=== PATIENT | male | born 1975 | race Caucasian/White ===

== ENCOUNTER 2020-02-01 06:20 | Emergency (ER) | payer BC, OTHER ==
[2020-02-01 06:37] LABS: Glucose,Whole Blood 94 mg/dL (75-99)
--- NOTE | 2020-02-01 06:46 | ED ---
General Adult HPI - General Chief complaint: Recheck/Abnormal Lab/Rx Stated complaint: Accidental Overdose Time Seen by Provider: 02/01/20 06:28 Source: patient, RN notes reviewed Mode of arrival: ambulatory Limitations: no limitations - History of Present Illness Initial comments: This a 44-year-old male presents emergency Department chief complaint of accidental insulin overdose. Patient states that he went to give himself his long-acting insulin but states he got his Humalog and gait 22 units and started 2 units. Patient states that he became very diaphoretic, nauseated. There is a pass out. Patient states that he didn't eat a large amount of sugar. Patient's last blood glucose was 12/14/2014 to 20 minutes prior arrival. Patient states she does feel better at this time. Denies chest pain, shortness breath, nausea vomiting - Related Data Home Medications Medication Instructions Recorded Confirmed Amoxicillin 500 mg PO Q8H 07/19/16 07/19/16 INSULIN LISPRO (humaLOG) [HumaLOG] See Protocol SQ AC-TID 07/19/16 07/19/16 Ibuprofen [Motrin] 800 mg PO TID PRN 07/19/16 07/19/16 Insulin Glargine,Hum.rec.anlog 18 units SQ DAILY 07/19/16 07/19/16 [Toujeo Solostar] Previous Rx's Medication Instructions Recorded Ibuprofen [Motrin] 600 mg PO Q6HR PRN #20 tab 07/19/16 Orphenadrine [Norflex] 100 mg PO Q12H PRN #12 tablet.er 07/19/16 Allergies Allergy/AdvReac Type Severity Reaction Status Date / Time No Known Allergies Allergy Verified 02/01/20 06:21 Review of Systems ROS Statement: Those systems with pertinent positive or pertinent negative responses have been documented in the HPI. ROS Other: All systems not noted in ROS Statement are negative. Past Medical History Past Medical History: Diabetes Mellitus History of Any Multi-Drug Resistant Organisms: None Reported Past Surgical History: Orthopedic Surgery Past Psychological History: No Psychological Hx Reported Smoking Status: Former smoker Past Alcohol Use History: None Reported Past Drug Use History: None Reported General Exam Limitations: no limitations General appearance: alert, in no apparent distress Head exam: Present: atraumatic, normocephalic, normal inspection Eye exam: Present: normal appearance, PERRL, EOMI. Absent: scleral icterus, conjunctival injection, periorbital swelling ENT exam: Present: normal exam, normal oropharynx, mucous membranes moist, TM's normal bilaterally Neck exam: Present: normal inspection, full ROM. Absent: tenderness, meningismus, lymphadenopathy Respiratory exam: Present: normal lung sounds bilaterally. Absent: respiratory distress, wheezes, rales, rhonchi, stridor Cardiovascular Exam: Present: regular rate, normal rhythm, normal heart sounds. Absent: systolic murmur, diastolic murmur, rubs, gallop, clicks Neurological exam: Present: alert, oriented X3, CN II-XII intact, reflexes normal. Absent: motor sensory deficit Skin exam: Present: warm, dry, intact, normal color. Absent: rash Course Vital Signs 02/01/20 02/01/20 02/01/20 06:21 08:25 09:00 Temperature 98.3 F 98.1 F Pulse Rate 98 81 77 Respiratory 18 18 16 Rate Blood Pressure 175/100 129/86 128/77 O2 Sat by Pulse 98 98 98 Oximetry Medical Decision Making - Medical Decision Making 44-year-old male presented for accidental insulin overdose. Patient has been observed for several hours, glucose is stabilized be discharged in stable condition. - Lab Data Lab Results 02/01/20 02/01/20 02/01/20 Range/Units 06:36 06:58 07:13 POC Glucose (mg/dL) 94 73 L 97 (75-99) mg/dL POC Glu Dry Talc Racker ID Myaa Harrison Blain Gaskill, Tammy 02/01/20 02/01/20 02/01/20 Range/Units 07:34 08:01 09:05 POC Glucose (mg/dL) 134 H 82 178 H (75-99) mg/dL POC Glu Dry Talc Racker ID Tonia Alas Molly Aguinaga, Molly 02/01/20 Range/Units 10:07 POC Glucose (mg/dL) 239 H (75-99) mg/dL POC Glu Dry Talc Racker ID Tonia Alas Disposition Clinical Impression: Accidental drug overdose, Hypoglycemia Disposition: HOME SELF-CARE Condition: Stable Instructions (If sedation given, give patient instructions): Hypoglycemia in a Person with Diabetes (ED) Additional Instructions: Please return to the Emergency Department if symptoms worsen or any other c oncerns. Is patient prescribed a controlled substance at d/c from ED?: No Referrals: None,Stated [Primary Care Provider] - 1-2 days Time of Disposition: 10:17
[2020-02-01 06:59] LABS: Glucose,Whole Blood 73 mg/dL (75-99)
[2020-02-01 07:25] LABS: Glucose,Whole Blood 97 mg/dL (75-99)
[2020-02-01 07:35] LABS: Glucose,Whole Blood 134 mg/dL (75-99)
[2020-02-01 08:02] LABS: Glucose,Whole Blood 82 mg/dL (75-99)
[2020-02-01] MEDS ORDERED: DEXTROSE 50% SYRINGE 50 ML IVP STA (08:14)
[2020-02-01 08:25] VITALS: TEMP 98.1
[2020-02-01 09:07] LABS: Glucose,Whole Blood 178 mg/dL (75-99)
[2020-02-01 09:34] VITALS: BP 128/77; PULSE 77; RESP 16
[2020-02-01 10:08] LABS: Glucose,Whole Blood 239 mg/dL (75-99)
== END 2020-02-01 10:19 | disposition home or self-care (01) ==
LOC: EC 06:20
DX: T38.3X1A Poisoning by insulin and oral hypoglycemic [antidiabetic] drugs, accidental (unintentional), initial encounter (principal); E11.649 Type 2 diabetes mellitus with hypoglycemia without coma; Z87.891 Personal history of nicotine dependence; Z79.4 Long term (current) use of insulin
CPT/HCPCS: 36415; 96374; 99284

== ENCOUNTER → 2021-02-16 | Outpatient (CLI) | payer BC ==
[2021-02-17 05:38] LABS: Basophils # (A) 0.01 X 10*3/uL (0.00-0.10); Basophils % (A) 0.2 %; Eosinophils # (A) 0.02 X 10*3/uL (0.04-0.35); Eosinophils % (A) 0.4 %; HCT 40.1 % (39.6-50.0); HGB 13.5 g/dL (13.0-17.0); Lymphocytes # (A) 1.23 X 10*3/uL (0.90-5.00); Lymphocytes % (A) 22.2 %; MCH 31.2 pg (27.0-32.0); MCHC 33.7 g/dL (32.0-37.0); MCV 92.6 fL (80.0-97.0); Mean Platelet Volume 10.6 fL (9.5-12.2); Monocytes % (A) 7.2 %; Neutrophils # (A) 3.85 X 10*3/uL (1.80-7.70); Neutrophils % (A) 69.6 %; Platelet Count 160 X 10*3/uL (140-440); RBC 4.33 X 10*6/uL (4.40-5.60); RDW 11.4 % (11.5-14.5); WBC 5.53 X 10*3/uL (4.50-10.00)
--- NOTE | 2021-02-17 12:58 | XR ---
EXAMINATION TYPE: XR chest 2V DATE OF EXAM: 02/16/2021 COMPARISON: NONE HISTORY: Covid pneumonia, cough and shortness of breath TECHNIQUE: Frontal and lateral views of the chest are obtained. FINDINGS: There is no pleural effusion or pneumothorax seen. Question some patchy basilar density. The cardiac silhouette size is within normal limits. The osseous structures are intact. IMPRESSION: Findings may represent vague airspace disease, correlate for pneumonia.
== END | disposition home or self-care (01) ==
LOC: LABWHC1 16:04
PROVIDERS: ATTEND Family Medicine
DX: U07.1 COVID-19 (principal); J12.82 Pneumonia due to coronavirus disease 2019
CPT/HCPCS: 85025; 71046; 36415; U0003; C9803; U0005

== ENCOUNTER → 2021-09-23 | Outpatient (CLI) | payer BC ==
[2021-09-23 20:13] LABS: Albumin 4.4 g/dL (3.8-4.9); Albumin/Globulin Ratio 1.95 (1.60-3.17); Anion Gap 12.3 mmol/L (4.00-12.00); BUN/Creat Ratio 12.89 Ratio (12.00-20.00); Blood Urea Nitrogen 10.7 mg/dL (9.0-27.0); Calcium 9.5 mg/dL (8.7-10.3); Chol/HDL Ratio 2.67 Ratio; Globulin 2.3 g/dL (1.6-3.3); HDL Cholesterol 59.2 mg/dL (40.00-60.00); Potassium 4.5 mmol/L (3.5-5.5); Total Protein 6.7 g/dL (6.2-8.2)
[2021-09-23 20:25] LABS: Triglycerides 37.4 mg/dL (0.00-149.00); VLDL Calculation 7.48 mg/dL (5.00-40.00)
[2021-09-23 21:50] LABS: Microalbumin Creatinine Ratio <30 mg/g Creat (0-30)
== END | disposition home or self-care (01) ==
LOC: LABWHC1 09:15
PROVIDERS: ATTEND Internal Medicine Endocrinology, Diabetes & Metabolism
DX: E10.65 Type 1 diabetes mellitus with hyperglycemia (principal)
CPT/HCPCS: 36415; 80053; 80061; 82043; 82570; 83036; 84443

== ENCOUNTER → 2022-07-14 | Outpatient (CLI) | payer BC ==
[2022-07-14 16:49] LABS: African American GFR (CKD) 122.2 (60.0-200.0); Albumin 4.4 g/dL (3.8-4.9); Albumin/Globulin Ratio 1.82 (1.60-3.17); Anion Gap 10.1 mmol/L (10.00-18.00); BUN/Creat Ratio 12.06 Ratio (12.00-20.00); Blood Urea Nitrogen 10.2 mg/dL (9.0-27.0); Calcium 9.6 mg/dL (8.7-10.3); Carbon Dioxide 26.1 mmol/L (20.0-27.5); Globulin 2.4 g/dL (1.6-3.3); HDL Cholesterol 59.3 mg/dL (40.00-60.00); Non-African American GFR(CKD) 105.4 (60.0-200.0); Potassium 4.8 mmol/L (3.5-5.5); Total Bilirubin 0.8 mg/dL (0.30-1.20); Total Protein 6.7 g/dL (6.2-8.2); Triglycerides 45.5 mg/dL (0.00-149.00)
[2022-07-14 17:07] LABS: Chol/HDL Ratio 2.66 Ratio; LDL Cholesterol,Direct Reflex 89.7 mg/dL (0.00-129.00)
[2022-07-14 18:27] LABS: Microalbumin Creatinine Ratio <30 mg/g Creat (0-30); Urine Creatinine 94.7 mg/dL (39.0-259.0)
== END | disposition home or self-care (01) ==
LOC: LABWHC1 08:56
PROVIDERS: ATTEND Internal Medicine Endocrinology, Diabetes & Metabolism
DX: E10.65 Type 1 diabetes mellitus with hyperglycemia (principal)
CPT/HCPCS: 36415; 80053; 80061; 82043; 82570; 83036; 83721; 84443

== ENCOUNTER 2022-07-24 20:48 | Emergency (ER) | payer BC ==
[2022-07-24 20:57] VITALS: BP 145/67; PULSE 99; RESP 16; TEMP 98
[2022-07-24 21:27] LABS: Basophils # (A) 0.1 k/uL (0-0.2); Basophils % (A) 1 %; Eosinophils # (A) 0.1 k/uL (0-0.7); Eosinophils % (A) 1 %; HCT 45.2 % (39.0-53.0); Lymphocytes # (A) 2.1 k/uL (1.0-4.8); Lymphocytes % (A) 27 %; MCHC 33.1 g/dL (31.0-37.0); MCV 93.4 fL (80.0-100.0); Mean Platelet Volume 7.1; Monocytes # (A) 0.3 k/uL (0-1.0); Monocytes % (A) 4 %; Neutrophils # (A) 4.9 k/uL (1.3-7.7); Neutrophils % (A) 64 %; Platelet Count 283 k/uL (150-450); RBC 4.83 m/uL (4.30-5.90); WBC 7.6 k/uL (3.8-10.6)
[2022-07-24 21:35] LABS: ALT 26 U/L (4-49); AST 25 U/L (17-59); African American GFR (CKD) >90 (>60 ml/min/1.73 sqM); Albumin 4.4 g/dL (3.5-5.0); Alkaline Phosphatase 86 U/L (38-126); Anion Gap 15 mmol/L; Blood Urea Nitrogen 12 mg/dL (9-20); Calcium 9.9 mg/dL (8.4-10.2); Carbon Dioxide 20 mmol/L (22-30); Chloride 104 mmol/L (98-107); Glucose 195 mg/dL (74-99); Non-African American GFR(CKD) >90 (>60 ml/min/1.73 sqM); Potassium 3.7 mmol/L (3.5-5.1); Sodium 139 mmol/L (137-145); Total Bilirubin 0.9 mg/dL (0.2-1.3)
[2022-07-24 21:41] LABS: Partial Thromboplastin Time 24.6 sec (22.0-30.0)
--- NOTE | 2022-07-24 22:55 | ED ---
Chest Pain HPI - General Chief Complaint: Chest Pain Stated Complaint: chest pain/tightness, neck,shoulder pain Time Seen by Provider: 07/24/22 22:44 Source: patient, RN notes reviewed, old records reviewed Mode of arrival: wheelchair Limitations: no limitations - History of Present Illness Initial Comments: This is a 47-year-old male to the emergency department for evaluation patient [place] for evaluation of significant heart palpitations patient states he was at work and not feeling well due to not feeling well he left work early he continued not feeling well throughout the night them began to have some significant chest palpitations like his heart was beating significantly hardness chest this of course may have significantly worried. There was really no nausea no vomiting no other complaints, no travel history no sick contacts no recent medical history or issues. Patient has no high blood pressure no high cholesterol no diabetes. Patient currently is without complaint no chest pain no shortness of breath no sweating. He feels well. is at bedside who believes is having anxiety and a recent implantation of persistent blood sugar monitor MD Complaint: chest pain ([place] heart beating in his chest significant) -: hour(s) Onset: during rest Pain Location: left chest Pain Radiation: none, RUE, LUE Severity: mild Severity scale (1-10): 2 Quality: other (Palpitations) Consistency: intermittent, now resolved Improves With: nothing Worsens With: nothing Anginal Symptoms: sense of impending doom Other Symptoms: palpitations Treatments Prior to Arrival: none - Related Data Home Medications Medication Instructions Recorded Confirmed Amoxicillin 500 mg PO Q8H 07/19/16 07/19/16 INSULIN LISPRO (humaLOG) [HumaLOG] See Protocol SQ AC-TID 07/19/16 07/19/16 Ibuprofen [Motrin] 800 mg PO TID PRN 07/19/16 07/19/16 Insulin Glargine,Hum.rec.anlog 18 units SQ DAILY 07/19/16 07/19/16 [Jessica Maldonado] Previous Rx's Medication Instructions Recorded Ibuprofen [Motrin] 600 mg PO Q6HR PRN #20 tab 07/19/16 Orphenadrine [Norflex] 100 mg PO Q12H PRN #12 tablet.er 07/19/16 Allergies Allergy/AdvReac Type Severity Reaction Status Date / Time No Known Allergies Allergy Verified 07/24/22 20:55 Review of Systems ROS Statement: Those systems with pertinent positive or pertinent negative responses have been documented in the HPI. ROS Other: All systems not noted in ROS Statement are negative. EKG Findings - EKG Comments: EKG Findings:: EKG is sinus rhythm 90 FL 154 QRS 114 QTc 401 Past Medical History Past Medical History: Diabetes Mellitus History of Any Multi-Drug Resistant Organisms: None Reported Past Surgical History: Orthopedic Surgery Past Psychological History: No Psychological Hx Reported Smoking Status: Never smoker Past Alcohol Use History: None Reported Past Drug Use History: Marijuana General Exam Limitations: no limitations General appearance: alert, in no apparent distress, anxious Head exam: Present: atraumatic, normocephalic, normal inspection Eye exam: Present: normal appearance, PERRL, EOMI. Absent: scleral icterus, conjunctival injection, periorbital swelling ENT exam: Present: normal exam, mucous membranes moist Neck exam: Present: normal inspection. Absent: tenderness, meningismus, lymphadenopathy Respiratory exam: Present: normal lung sounds bilaterally. Absent: respiratory distress, wheezes, rales, rhonchi, stridor Cardiovascular Exam: Present: regular rate, normal rhythm, normal heart sounds. Absent: systolic murmur, diastolic murmur, rubs, gallop, clicks GI/Abdominal exam: Present: soft, normal bowel sounds. Absent: distended, tenderness, guarding, rebound, rigid Extremities exam: Present: normal inspection, full ROM, normal capillary refill. Absent: tenderness, pedal edema, joint swelling, calf tenderness Back exam: Present: normal inspection Neurological exam: Present: alert, oriented X3, CN II-XII intact Psychiatric exam: Present: normal affect, normal mood Skin exam: Present: warm, dry, intact, normal color. Absent: rash Course Vital Signs 07/24/22 20:55 Temperature 98 F Pulse Rate 99 Respiratory 16 Rate Blood Pressure 145/67 O2 Sat by Pulse 98 Oximetry - Reevaluation(s) Reevaluation #1: 07/24/22 23:21 Medical record is reviewed Reevaluation #2: 07/24/22 23:22 Patient is asymptomatic and recheck and reevaluation Reevaluation #3: 07/24/22 23:22 Patient informed results and questions answered Reevaluation #4: 07/24/22 23:22 Patient offered observation for stress testing cardiology evaluation refusing and prefers discharge Chest Pain MDM - MDM 47 male nonspecific chest pain. Patient feels well currently. At this point patient can be discharged home Disposition Clinical Impression: Chest pain Disposition: HOME SELF-CARE Condition: Good Instructions (If sedation given, give patient instructions): Chest Pain (ED) Is patient prescribed a controlled substance at d/c from ED?: No Referrals: None,Stated [Primary Care Provider] - 1-2 days Time of Disposition: 23:20
== END 2022-07-24 23:23 | disposition home or self-care (01) ==
LOC: EC 20:48
DX: R07.89 Other chest pain (principal); E11.9 Type 2 diabetes mellitus without complications; Z79.4 Long term (current) use of insulin
CPT/HCPCS: 36415; 80053; 84484; 85025; 85610; 85730; 93005; 99284

== ENCOUNTER 2023-03-01 22:39 | Emergency (ER) | payer BC ==
[2023-03-01 22:47] VITALS: BP 178/84; PULSE 75; RESP 18
--- NOTE | 2023-03-01 23:04 | ED ---
General Adult HPI - General Chief complaint: Nausea/Vomiting/Diarrhea Stated complaint: HANDS NUMB Time Seen by Provider: 03/01/23 22:48 Source: patient Mode of arrival: ambulatory Limitations: no limitations - History of Present Illness Initial comments: Patient is a 47-year-old male presenting with chief complaint of transient episode of numbness to the bilateral hands. Patient states that at home he had sudden onset nausea, head pressure, and numbness in the hands which lasted for a few seconds. Symptoms have now completely resolved. He denies any chest pain, difficulty breathing, nausea, vomiting, palpitations, weakness, abdominal pain, headache, vision or hearing changes, dizziness, syncope, fever, chills. - Related Data Home Medications Medication Instructions Recorded Confirmed Amoxicillin 500 mg PO Q8H 07/19/16 07/19/16 INSULIN LISPRO (humaLOG) [HumaLOG] See Protocol SQ AC-TID 07/19/16 07/19/16 Ibuprofen [Motrin] 800 mg PO TID PRN 07/19/16 07/19/16 Insulin Glargine,Hum.rec.anlog 18 units SQ DAILY 07/19/16 07/19/16 [Toujeo Solostar] Previous Rx's Medication Instructions Recorded Ibuprofen [Motrin] 600 mg PO Q6HR PRN #20 tab 07/19/16 Orphenadrine [Norflex] 100 mg PO Q12H PRN #12 tablet.er 07/19/16 Allergies Allergy/AdvReac Type Severity Reaction Status Date / Time No Known Allergies Allergy Verified 07/24/22 20:55 Review of Systems ROS Statement: Those systems with pertinent positive or pertinent negative responses have been documented in the HPI. ROS Other: All systems not noted in ROS Statement are negative. Past Medical History Past Medical History: Diabetes Mellitus History of Any Multi-Drug Resistant Organisms: None Reported Past Surgical History: Orthopedic Surgery Past Psychological History: No Psychological Hx Reported Smoking Status: Never smoker Past Alcohol Use History: None Reported Past Drug Use History: Marijuana General Exam Limitations: no limitations General appearance: alert, in no apparent distress Head exam: Present: atraumatic, normocephalic, normal inspection Eye exam: Present: normal appearance, PERRL, EOMI. Absent: scleral icterus, conjunctival injection, periorbital swelling Neck exam: Present: normal inspection, full ROM Respiratory exam: Present: normal lung sounds bilaterally. Absent: respiratory distress, wheezes, rales, rhonchi, stridor Cardiovascular Exam: Present: regular rate, normal rhythm, normal heart sounds. Absent: systolic murmur, diastolic murmur, rubs, gallop, clicks Neurological exam: Present: alert, oriented X3, CN II-XII intact Expanded Patient oriented to: Present: person, place, time Speech: Present: fluid speech Cranial nerves: EOM's Intact: Normal, Facial Sensation: Normal Cerebellar function: Finger to Nose: Normal Sensory exam: Upper Extremity Light Touch: Normal, Lower Extremity Light Touch: Normal Motor strength exam: RUE: 5, LUE: 5, RLE: 5, LLE: 5 Eye Response: (4) open spontaneously Motor Response: (6) obeys commands Verbal Response: (5) oriented Denny Total: 15 Psychiatric exam: Present: normal affect, normal mood Skin exam: Present: warm, dry, intact, normal color. Absent: rash Course Vital Signs 03/01/23 22:43 Pulse Rate 75 Respiratory 18 Rate Blood Pressure 178/84 O2 Sat by Pulse 98 Oximetry Medical Decision Making - Medical Decision Making Was pt. sent in by a medical professional or institution (, PA, HAY RAKE OPERATOR, urgent care, hospital, or senior living...) When possible be specific @ -No Did you speak to anyone other than the patient for history (EMS, parent, family, police, friend...)? What history was obtained from this source @ -No Did you review nursing and triage notes (agree or disagree)? Why? @ -I reviewed and agree with nursing and triage notes Were old charts reviewed (outside hosp., previous admission, EMS record, old EKG, old radiological studies, urgent care reports/EKG's, senior living records)? Report findings @ -No old charts were reviewed Differential Diagnosis (chest pain, altered mental status, abdominal pain women, abdominal pain men, vaginal bleeding, weakness, fever, dyspnea, syncope, headache, dizziness, GI bleed, back pain, seizure, CVA, palpatations, mental health, musculoskeletal)? @ -Differential includes anxiety, TIA, dysrhythmia, this is not an all inclusive list EKG interpreted by me (3pts min.). @ -As above X-rays interpreted by me (1pt min.). @ -None done CT interpreted by me (1pt min.). @ -None done U/S interpreted by me (1pt. min.). @ -None done What testing was considered but not performed or refused? (CT, X-rays, U/S, labs)? Why? @ -None What meds were considered but not given or refused? Why? @ -None Did you discuss the management of the patient with other professionals (professionals i.e. Dr., PA, HAY RAKE OPERATOR, lab, RT, psych nurse, social problems specialist, paster hat lining, teacher, air support control officer, dependency case manager)? Give summary @ -No Was smoking cessation discussed for >3mins.? @ -No Was critical care preformed (if so, how long)? @ -No Were there social determinants of health that impacted care today? How? (Home lessness, low income, unemployed, alcoholism, drug addiction, transportation, low edu. Level, literacy, decrease access to med. care, correction, rehab)? @ -No Was there de-escalation of care discussed even if they declined (Discuss DNR or withdrawal of care, Hospice)? DNR status @ -No What co-morbidities impacted this encounter? (DM, HTN, Smoking, COPD, CAD, Cancer, CVA, ARF, Chemo, Hep., AIDS, mental health diagnosis, sleep apnea, morbid obesity)? @ -None Was patient admitted / discharged? Hospital course, mention meds given and route, prescriptions, significant lab abnormalities, going to OR and other pertinent info. @ -Patient is a 47-year-old male presenting for evaluation after brief episode of nausea, head pressure, numbness in the bilateral hands. Patient states this episode started very quickly and only lasted a few seconds. Symptoms have now completely resolved. He is asymptomatic at time of presentation. On physical exam heart and lungs are clear to auscultation, no focal neurological deficits. Patient is nontoxic appearing. I discussed that since the patient is not having any symptoms at this time I do not believe there are any laboratory studies or imaging studies that would be of benefit. I did advise that the patient inquire about a Holter monitor with his PCP. Patient is agreeable. Follow-up with PCP. Report back to ER with any new or worsening symptoms. Discussed return parameters and answered all questions. Patient conveyed verbal understanding and agreed to the plan. I discussed this case in detail with my attending Dr. Headley Undiagnosed new problem with uncertain prognosis? @ -No Drug Therapy requiring intensive monitoring for toxicity (Heparin, Nitro, Insulin, Cardizem)? @ -No Were any procedures done? @ -No Diagnosis/symptom? @ -Paresthesias Acute, or Chronic, or Acute on Chronic? @ -Acute Uncomplicated (without systemic symptoms) or Complicated (systemic symptoms)? @ -Uncomplicated Side effects of treatment? @ -No Exacerbation, Progression, or Severe Exacerbation? @ -No Poses a threat to life or bodily function? How? (Chest pain, [place], [place], pneumonia, PE, COPD, DKA, ARF, appy, cholecystitis, CVA, Diverticulitis, Homicidal, Suicidal, threat to staff... and all critical care pts) @ -No Disposition Clinical Impression: Paresthesia Disposition: HOME SELF-CARE Condition: Good Instructions (If sedation given, give patient instructions): Paresthesia (ED) Additional Instructions: Follow-up with PCP. Report back to ER with any new or worsening symptoms. Is patient prescribed a controlled substance at d/c from ED?: No Referrals: Ryan Walker NPC [Primary Care Provider] - 1-2 days Time of Disposition: 23:04
== END 2023-03-01 23:20 | disposition home or self-care (01) ==
LOC: EC 22:39
DX: R20.2 Paresthesia of skin (principal); E11.9 Type 2 diabetes mellitus without complications; F12.90 Cannabis use, unspecified, uncomplicated; Z79.4 Long term (current) use of insulin
CPT/HCPCS: 99283

== ENCOUNTER → 2023-09-28 | Outpatient (CLI) | payer BC ==
[2023-09-28 10:12] LABS: ALT 34 U/L (4-49); AST 26 U/L (17-59); African American GFR (CKD) >90 (>60 ml/min/1.73 sqM); Albumin 4.2 g/dL (3.5-5.0); Albumin/Globulin Ratio 1.5; Alkaline Phosphatase 102 U/L (38-126); Anion Gap 8 mmol/L; Blood Urea Nitrogen 16 mg/dL (9-20); Calcium 9.3 mg/dL (8.4-10.2); Carbon Dioxide 27 mmol/L (22-30); Chloride 105 mmol/L (98-107); Globulin 2.8 g/dL; Glucose 235 mg/dL (74-99); Non-African American GFR(CKD) >90 (>60 ml/min/1.73 sqM); Potassium 4.7 mmol/L (3.5-5.1); Sodium 140 mmol/L (137-145); Total Bilirubin 0.7 mg/dL (0.2-1.3)
[2023-09-28 14:15] LABS: Microalbumin Creatinine Ratio <10 mg/g Cr (0-30)
[2023-09-29 13:34] LABS: Chol/HDL Ratio 3.01 Ratio; LDL Cholesterol,Calculated 95.2 mg/dL (0.0-131.0); VLDL Calculation 7.74 mg/dL (5.00-40.00)
== END | disposition home or self-care (01) ==
LOC: LABWHC1 08:08
PROVIDERS: ATTEND Internal Medicine Endocrinology, Diabetes & Metabolism
DX: E10.65 Type 1 diabetes mellitus with hyperglycemia (principal)
CPT/HCPCS: 36415; 80053; 80061; 82043; 82570; 83036; 84443

== ENCOUNTER 2023-10-21 18:50 | Emergency (ER) | payer BC ==
--- NOTE | 2023-10-21 19:02 | ED ---
General Adult HPI - General Source: patient, RN notes reviewed <Mai Roberts - Last Filed: 10/21/23 19:01> - General Source: patient, RN notes reviewed Mode of arrival: ambulatory Limitations: no limitations <Sameera Myers - Last Filed: 10/22/23 20:40> - General Chief complaint: Chest Pain Stated complaint: Chest pain Time Seen by Provider: 10/21/23 19:01 - History of Present Illness Initial comments: 48-year-old male presents emergency department for chief complaint of abnormal EKG. Patient states that he was evaluated today for some chest discomfort. He stated that time he took an EKG and states that it was abnormal. They sent him to the emergency department for further evaluation. He denies any shortness of breath. He is type 1 Diabetic. (Mai Roberts) This is a 48-year-old male who presents to the emergency department for chest pain. States that early this morning he started to develop sharp chest pain. Denies any shortness of breath or radiation of pain. He initially went to the urgent care in [place]. States that they did an EKG and were concerned that it was abnormal, and they advised him to come to the emergency department for evaluation. Pain is mild at this time. Denies any personal or family history of cardiac problems. (Sameera Myers) - Related Data Home Medications Medication Instructions Recorded Confirmed Amoxicillin 500 mg PO Q8H 07/19/16 07/19/16 INSULIN LISPRO (humaLOG) [HumaLOG] See Protocol SQ AC-TID 07/19/16 07/19/16 Ibuprofen [Motrin] 800 mg PO TID PRN 07/19/16 07/19/16 Insulin Glargine,Hum.rec.anlog 18 units SQ DAILY 07/19/16 07/19/16 [Toujeo Solostar] Previous Rx's Medication Instructions Recorded Ibuprofen [Motrin] 600 mg PO Q6HR PRN #20 tab 07/19/16 Orphenadrine [Norflex] 100 mg PO Q12H PRN #12 tablet.er 07/19/16 Allergies Allergy/AdvReac Type Severity Reaction Status Date / Time No Known Allergies Allergy Verified 07/24/22 20:55 Review of Systems ROS Other: All systems not noted in ROS Statement are negative. <Mai Roberts - Last Filed: 10/21/23 19:01> ROS Other: All systems not noted in ROS Statement are negative. <Sameera Myers - Last Filed: 10/22/23 20:40> ROS Statement: Those systems with pertinent positive or pertinent negative responses have been documented in the HPI. Past Medical History Past Medical History: Diabetes Mellitus History of Any Multi-Drug Resistant Organisms: None Reported Past Surgical History: Orthopedic Surgery Past Psychological History: No Psychological Hx Reported Smoking Status: Never smoker Past Alcohol Use History: None Reported Past Drug Use History: Marijuana <Mai Roberts - Last Filed: 10/21/23 19:01> General Exam <Mai Roberts - Last Filed: 10/21/23 19:01> Limitations: no limitations General appearance: alert, in no apparent distress Head exam: Present: atraumatic, normocephalic, normal inspection Respiratory exam: Present: normal lung sounds bilaterally. Absent: respiratory distress, wheezes, rales, rhonchi, stridor Cardiovascular Exam: Present: regular rate, normal rhythm, normal heart sounds. Absent: systolic murmur, diastolic murmur, rubs, gallop, clicks Neurological exam: Present: alert, oriented X3, CN II-XII intact Psychiatric exam: Present: normal affect, normal mood Skin exam: Present: warm, dry, intact, normal color. Absent: rash <Sameera Myers - Last Filed: 10/22/23 20:40> - General Exam Comments Initial Comments: Visual Physical Exam Vital signs reviewed General: Well-appearing, nontoxic, no acute distress. Head: Normocephalic, atraumatic Eyes: PERRLA, EOMI ENT: Airway patent Chest: Nonlabored breathing Skin: No visual rash, normal skin tone Neuro: Alert and oriented 3 Musculoskeletal: No gross abnormalities (Mai Roberts) Course Vital Signs 10/21/23 10/22/23 18:59 02:09 Temperature 98.2 F 97.6 F Pulse Rate 85 61 Respiratory 16 18 Rate Blood Pressure 160/88 146/80 O2 Sat by Pulse 98 Oximetry Medical Decision Making <Mai Roberts - Last Filed: 10/21/23 19:01> - Lab Data Result diagrams: 10/21/23 19:29 10/21/23 19:29 - Radiology Data Radiology results: report reviewed, image reviewed <Sameera Myers - Last Filed: 10/22/23 20:40> - Medical Decision Making I preformed the quick note portion of this chart. signed by Mai Roberts PA-C (Mai Roberts) This is a 48-year-old male who presents to the emergency department for chest pain. Was pt. sent in by a medical professional or institution? @ -No Did you speak to anyone other than the patient for history? @ -No Did you review nursing and triage notes? @ -Yes, and I agree, it is accurate with regards to the patient's symptoms. Were old charts reviewed? @ -No Differential Diagnosis? @ -Differential Chest Pain: Stable Angina, Unstable Angina, STEMI, NSTEMI Aortic Dissection, Pneumothorax, Musculoskeletal, Esophageal Spasm GERD, Cholecystitis, Pancreatitis, Zoster, this is not meant to be an all-inclusive list. EKG interpreted by me (3pts min.)? @ -EKG interpreted by me demonstrating the following: Sinus rhythm. Ventricular rate 75 bpm, AK interval 170 ms, QRS duration 117 ms, QTC 379 ms. X-rays interpreted by me (1pt min.)? @ -Chest x-ray obtained, my interpretation identifies no localized consolidations or infiltrates. CT interpreted by me (1pt min.)? @ -Not obtained U/S interpreted by me (1pt. min.)? @ -Not obtained What testing was considered but not performed? (CT, X-rays, U/S, labs)? Why? @ -None What meds were considered but not given? Why? @ -None Did you discuss the management of the patient with other professionals? @ -No Did you reconcile home meds? @ -No Was smoking cessation discussed for >3mins.? @ -No Was critical care preformed (if so, how long)? @ -No Were there social determinants of health that impacted care today? How? (Homelessness, low income, unemployed, alcoholism, drug addiction, transportation, low edu. Level, literacy, decrease access to med. care, nursing home, rehab)? @ -No Was there de-escalation of care discussed even if they declined? (Discuss DNR or withdrawal of care, Hospice)? @ -No What co-morbidities impacted this encounter? (DM, HTN, Smoking, COPD, CAD, Cancer, CVA, Hep., AIDS, mental health diagnosis, sleep apnea, morbid obesity)? @ -DM Was patient admitted / discharged? @ -Discharged. Lab work obtained and found to be fairly unremarkable aside from a low blood sugar of 50. Patient was asymptomatic in terms of his blood sugar. He had also not eaten before the blood work was drawn and was eating while in the emergency department afterwards. Chest x-ray negative for any acute process. Patient's heart score is 2. Pain continued to be mild in the emergency department and he felt stable for discharge home. Advised ibuprofen and Tylenol as needed for pain relief and close follow-up with his primary care provider for reevaluation. Undiagnosed new problem with uncertain prognosis? @ -None Drug Therapy requiring intensive monitoring for toxicity (Heparin, Nitro, Insulin, Cardizem)? @ -None Were any procedures done? @ -None Diagnosis/symptom? @ -Chest pain Acute, or Chronic, or Acute on Chronic? @ -Acute Uncomplicated (without systemic symptoms) or Complicated (systemic symptoms)? @ -Uncomplicated Side effects of treatment? @ -None Exacerbation, Progression, or Severe Exacerbation] @ -Not applicable Poses a threat to life or bodily function? @ -No Return precautions reviewed in depth, the patient is instructed to return to the emergency department with any new, worsening, or concerning symptoms. Patient verbalized understanding. This case was discussed in detail with the attending ED physician, Dr. Roy. Presentation, findings, and treatment plan discussed in detail as well. (Sameera Myers) - Lab Data Lab Results 10/21/23 10/21/23 10/21/23 Range/Units 19:29 19:29 19:29 WBC 6.8 (3.8-10.6) k/uL RBC 4.75 (4.30-5.90) m/uL Hgb 15.3 (13.0-17.5) gm/dL Hct 45.3 (39.0-53.0) % MCV 95.5 (80.0-100.0) fL MCH 32.3 (25.0-35.0) pg MCHC 33.8 (31.0-37.0) g/dL RDW 12.0 (11.5-15.5) % Plt Count 277 (150-450) k/uL MPV 7.1 Neutrophils % 51 % Lymphocytes % 40 % Monocytes % 4 % Eosinophils % 2 % Basophils % 1 % Neutrophils # 3.5 (1.3-7.7) k/uL Lymphocytes # 2.7 (1.0-4.8) k/uL Monocytes # 0.3 (0-1.0) k/uL Eosinophils # 0.1 (0-0.7) k/uL Basophils # 0.1 (0-0.2) k/uL PT 11.2 (10.0-12.5) sec INR 1.0 (<1.2) APTT 26.3 (22.0-30.0) sec Sodium 141 (137-145) mmol/L Potassium 3.8 (3.5-5.1) mmol/L Chloride 103 (98-107) mmol/L Carbon Dioxide 27 (22-30) mmol/L Anion Gap 11 mmol/L BUN 16 (9-20) mg/dL Creatinine 0.68 (0.66-1.25) mg/dL Est GFR (CKD-EPI)AfAm >90 (>60 ml/min/1.73 sqM) Est GFR (CKD-EPI)NonAf >90 (>60 ml/min/1.73 sqM) Glucose 50 L (74-99) mg/dL Calcium 9.7 (8.4-10.2) mg/dL Magnesium 2.1 (1.6-2.3) mg/dL Total Bilirubin 0.6 (0.2-1.3) mg/dL AST 27 (17-59) U/L ALT 41 (4-49) U/L Alkaline Phosphatase 84 (38-126) U/L Troponin I (0.000-0.034) ng/mL Total Protein 7.6 (6.3-8.2) g/dL Albumin 4.6 (3.5-5.0) g/dL 10/21/23 Range/Units 19:29 WBC (3.8-10.6) k/uL RBC (4.30-5.90) m/uL Hgb (13.0-17.5) gm/dL Hct (39.0-53.0) % MCV (80.0-100.0) fL MCH (25.0-35.0) pg MCHC (31.0-37.0) g/dL RDW (11.5-15.5) % Plt Count (150-450) k/uL MPV Neutrophils % % Lymphocytes % % Monocytes % % Eosinophils % % Basophils % % Neutrophils # (1.3-7.7) k/uL Lymphocytes # (1.0-4.8) k/uL Monocytes # (0-1.0) k/uL Eosinophils # (0-0.7) k/uL Basophils # (0-0.2) k/uL PT (10.0-12.5) sec INR (<1.2) APTT (22.0-30.0) sec Sodium (137-145) mmol/L Potassium (3.5-5.1) mmol/L Chloride (98-107) mmol/L Carbon Dioxide (22-30) mmol/L Anion Gap mmol/L BUN (9-20) mg/dL Creatinine (0.66-1.25) mg/dL Est GFR (CKD-EPI)AfAm (>60 ml/min/1.73 sqM) Est GFR (CKD-EPI)NonAf (>60 ml/min/1.73 sqM) Glucose (74-99) mg/dL Calcium (8.4-10.2) mg/dL Magnesium (1.6-2.3) mg/dL Total Bilirubin (0.2-1.3) mg/dL AST (17-59) U/L ALT (4-49) U/L Alkaline Phosphatase (38-126) U/L Troponin I <0.012 (0.000-0.034) ng/mL Total Protein (6.3-8.2) g/dL Albumin (3.5-5.0) g/dL Disposition <Mai Roberts - Last Filed: 10/21/23 19:01> Is patient prescribed a controlled substance at d/c from ED?: No <Sameera Myers - Last Filed: 10/22/23 20:40> Clinical Impression: Chest pain Disposition: HOME SELF-CARE Instructions (If sedation given, give patient instructions): Chest Pain (ED) Additional Instructions: Return to the emergency department with any new, worsening, or concerning symptoms. Follow up with your primary care provider in 1-2 days. Referrals: None,Stated [REFERRING] - 1-2 days
[2023-10-21 19:39] LABS: Basophils # (A) 0.1 k/uL (0-0.2); Basophils % (A) 1 %; Eosinophils # (A) 0.1 k/uL (0-0.7); Eosinophils % (A) 2 %; HCT 45.3 % (39.0-53.0); HGB 15.3 gm/dL (13.0-17.5); Lymphocytes # (A) 2.7 k/uL (1.0-4.8); Lymphocytes % (A) 40 %; MCH 32.3 pg (25.0-35.0); MCHC 33.8 g/dL (31.0-37.0); MCV 95.5 fL (80.0-100.0); Mean Platelet Volume 7.1; Monocytes # (A) 0.3 k/uL (0-1.0); Monocytes % (A) 4 %; Neutrophils # (A) 3.5 k/uL (1.3-7.7); Neutrophils % (A) 51 %; Platelet Count 277 k/uL (150-450); RBC 4.75 m/uL (4.30-5.90); WBC 6.8 k/uL (3.8-10.6)
[2023-10-21 19:52] LABS: Partial Thromboplastin Time 26.3 sec (22.0-30.0); Prothrombin Time 11.2 sec (10.0-12.5)
[2023-10-21 20:12] LABS: ALT 41 U/L (4-49); AST 27 U/L (17-59); African American GFR (CKD) >90 (>60 ml/min/1.73 sqM); Albumin 4.6 g/dL (3.5-5.0); Alkaline Phosphatase 84 U/L (38-126); Anion Gap 11 mmol/L; Blood Urea Nitrogen 16 mg/dL (9-20); Calcium 9.7 mg/dL (8.4-10.2); Carbon Dioxide 27 mmol/L (22-30); Chloride 103 mmol/L (98-107); Glucose 50 mg/dL (74-99); Magnesium 2.1 mg/dL (1.6-2.3); Non-African American GFR(CKD) >90 (>60 ml/min/1.73 sqM); Potassium 3.8 mmol/L (3.5-5.1); Sodium 141 mmol/L (137-145); Total Bilirubin 0.6 mg/dL (0.2-1.3); Total Protein 7.6 g/dL (6.3-8.2)
--- NOTE | 2023-10-21 20:37 | XR ---
EXAMINATION TYPE: XR chest 2V DATE OF EXAM: 10/21/2023 7:47 PM CLINICAL INDICATION:Male, 48 years old with history of Chest Pain; [facility] COMPARISON: Chest radiographs from TECHNIQUE: XR chest 2V Frontal and lateral views of the chest. FINDINGS: Lungs/Pleura: There is no evidence of pleural effusion, focal consolidation, or pneumothorax. Pulmonary vascularity: Unremarkable. Heart/mediastinum: Cardiomediastinal silhouette is unremarkable. Musculoskeletal: No acute osseous pathology. IMPRESSION: No acute cardiopulmonary disease/process.
[2023-10-22 02:27] VITALS: BP 146/80; PULSE 61; RESP 18; TEMP 97.6
== END 2023-10-22 02:18 | disposition home or self-care (01) ==
LOC: EC 18:50
DX: I45.10 Unspecified right bundle-branch block (principal); I44.4 Left anterior fascicular block; E10.9 Type 1 diabetes mellitus without complications; F12.90 Cannabis use, unspecified, uncomplicated; Z79.4 Long term (current) use of insulin
CPT/HCPCS: 36415; 71046; 80053; 83735; 84484; 85025; 85610; 85730; 93005; 99285

== ENCOUNTER → 2025-02-13 | Outpatient (CLI) | payer BC ==
[2025-02-13 14:03] LABS: ALT 45 U/L (10-49); AST 27 U/L (14-35); Albumin 4.4 g/dL (3.8-4.9); Alkaline Phosphatase 94 U/L (41-126); BUN/Creat Ratio 16.25 Ratio (12.00-20.00); Calcium 9.5 mg/dL (8.7-10.3); Carbon Dioxide 26.2 mmol/L (21.6-31.8); Chloride 104 mmol/L (96-109); Chol/HDL Ratio 2.82 Ratio; Globulin 2.2 g/dL (1.6-3.3); Glucose 256 mg/dL (70-110); LDL Cholesterol,Calculated 106.3 mg/dL (0.0-131.0); Potassium 4.8 mmol/L (3.5-5.5); Sodium 140 mmol/L (135-145); Total Bilirubin 0.5 mg/dL (0.3-1.2); Total Protein 6.6 g/dL (6.2-8.2); VLDL Calculation 7.16 mg/dL (5.00-40.00)
[2025-02-13 14:50] LABS: Microalbumin Creatinine Ratio <14 mg/g Cr (0-30); Urine Creatinine 84.1 mg/dL (39.0-259.0)
== END | disposition home or self-care (01) ==
LOC: LABWHC1 08:02
PROVIDERS: ATTEND Internal Medicine Endocrinology, Diabetes & Metabolism
DX: E10.65 Type 1 diabetes mellitus with hyperglycemia (principal)
CPT/HCPCS: 36415; 80053; 80061; 82043; 82570; 83036; 84443